=== PATIENT | male | born 1970 | race Two or more races ===

== ENCOUNTER 2020-03-28 15:07 | Emergency (ER) | payer OTHER ==
--- NOTE | 2020-03-28 15:19 | ER Document Report ---
ED Medical Screen (RME) - General Chief Complaint: Hand Injury Stated Complaint: HAND INJURY Time Seen by Provider: 03/28/20 15:10 Mode of Arrival: Ambulatory Information source: Patient Notes: 49-year-old male presented to ED for a drywall knife stuck in his left hand. It is impaled into his hand right now.He states his last tetnus was about 6-7 years ago. He injuried himself at work. Patient is aler oriented speaking in full sentences. I have greeted and performed a rapid initial assessment of this patient. A comprehensive ED assessment and evaluation of the patient, analysis of test results and completion of medical decision making process will be conducted by an additional ED providers.
[2020-03-28] MEDS ORDERED: OXYCODONE-ACETAMINOPHEN 5-325 MG TABLET PO ONE (15:24)
[2020-03-28] MEDS ORDERED: DIPH/PERTUSS(ACELL)/TETANUS VAC/PF 0.5 ML SYR (>=10YO) IM ONE (15:26)
[2020-03-28] MEDS ORDERED: LIDOCAINE 1% INJ-PF (10 MG/ML) 30 ML SDV INJ ONE (15:29)
--- NOTE | 2020-03-28 15:29 | ER Document Report ---
ED General - General Chief Complaint: Hand Injury Stated Complaint: HAND INJURY Time Seen by Provider: 03/28/20 15:10 Mode of Arrival: Ambulatory - [facility] Patient complains to provider of: left hand pain Notes: Normally healthy 49-year-old male no chronic medical history presents after an accident at work. Patient was working with drywall using a drywall knife. Patient stabbed himself accidentally between third and fourth finger. The tip of the drywall blade was stuck in between the distal portion of the meta carpals. Patient has pain 10/10 sharp in nature without radiation nothing makes it better or worse. Patient is not sure of his tetanus status. Past Medical History - General Information source: Patient - Social History Smoking Status: Unknown if Ever Smoked Family History: None Review of Systems - Review of Systems Notes: REVIEW OF SYSTEMS: CONSTITUTIONAL: -fevers, -chills EENT: -eye pain, -difficulty swallowing, -nasal congestion CARDIOVASCULAR: -chest pain, -syncope. RESPIRATORY: -cough, -SOB GASTROINTESTINAL: -abdominal pain, -nausea, -vomiting, -diarrhea GENITOURINARY: -dysuria, -hematuria MUSCULOSKELETAL: Left hand pain SKIN: -rash or skin lesions. HEMATOLOGIC: -easy bruising or bleeding. LYMPHATIC: -swollen, enlarged glands. NEUROLOGICAL: -altered mental status or loss of consciousness, -headache, - neurologic symptoms PSYCHIATRIC: -anxiety, -depression. ALL OTHER SYSTEMS REVIEWED AND NEGATIVE. Physical Exam - Notes Notes: PHYSICAL EXAMINATION: GENERAL: Well-appearing, well-nourished and in no acute distress. HEAD: Atraumatic, normocephalic. EYES: Pupils equal round, sclera anicteric, conjunctiva are normal. ENT: Surgical mask in place. NECK: Normal range of motion, LUNGS: No respiratory Distress, normal chest rise EXTREMITIES: Patient has a drywall knife with approximately 1 cm of tip sticking in hand between middle finger and ring finger, left hand NEUROLOGICAL: Cranial nerves grossly intact. Normal speech, PSYCH: Normal mood, normal affect. SKIN: Warm, Dry, Course - Re-evaluation Re-evalutation: 03/28/20 15:42 Normally healthy 49-year-old male presents after accidentally stepping himself with a drywall knife. Procedure: Patient has the area anesthetized with lidocaine. Cleaned with copious amount of Betadine. 11 blade is used to add small incision to free the tip. Dry well blade removed without difficulty or pain to patient. Dressed with topical bacitracin. Patient will be started on doxycycline. Patient given oral analgesia the emergency department. Given strict return precautions look for signs of infection. Follow-up at family doctor. 03/28/20 15:43 Status updated emergency department. X-ray shows no bony fracture Discharge - Discharge Clinical Impression: Laceration, Foreign body (FB) in soft tissue Condition: Stable Disposition: HOME, SELF-CARE Instructions: Laceration Care ([facility]), Antibiotic Ointment Protection ([facility]) Additional Instructions: Return to the emergency department for any signs and symptoms of infection. Prescriptions: Doxycycline Hyclate 100 mg PO BID #14 tablet.
[2020-03-28 16:09] VITALS: BP 132/83
--- NOTE | 2020-03-28 16:16 | RADIOLOGY REPORT (SQ) ---
EXAM DESCRIPTION: HAND LEFT 3 VIEWS IMAGES COMPLETED DATE/TIME: 03/28/2020 3:36 pm REASON FOR STUDY: saw in hand COMPARISON: None. EXAM PARAMETERS: NUMBER OF VIEWS: Three views. TECHNIQUE: AP, lateral and oblique radiographic images acquired of the left hand. LIMITATIONS: None. FINDINGS: MINERALIZATION: Normal. BONES: No acute fracture or dislocation. No worrisome bone lesions. JOINTS: No effusions. SOFT TISSUES: A subtle blade is impaled in the soft tissue between the bases of the 3rd and 4th proxi mal phalanges. This extends about 15 mm. OTHER: No other significant finding. IMPRESSION: Saw blade in the soft tissues extends about 15 mm. No osseous finding. TECHNICAL DOCUMENTATION: JOB ID: [id number] 2010 From [employer]- All Rights Reserved Reading location - IP/workstation name: [email or web address]
== END 2020-03-28 16:15 | disposition home or self-care (01) ==
LOC: ER 15:07
DX: S61.422A Laceration with foreign body of left hand, initial encounter (principal); W26.0XXA Contact with knife, initial encounter; Y93.89 Activity, other specified; Y99.0 Civilian activity done for income or pay; Z23 Encounter for immunization
CPT/HCPCS: 90715; 99283